=== PATIENT | female | born 1990 | race Hispanic/Latino ===

== ENCOUNTER 2019-09-03 05:13 | Emergency (ER) | payer OTHER ==
[~2019-09-03] VITALS: Ht 160 cm; Wt 86.2 kg
--- OUTSIDE RECORDS SUMMARY | 2019-09-03 05:16 | XMS REPORT | Summary of Care ---
Author Author 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 [place], [place] [address] [phone] Attending Physician: Milly Luna RNC,MSN,,WHNP-BC Vital Signs No data available for this section Problem List No data available for this section Allergies, Adverse Reactions, Alerts Substance Reaction Severity Status NKDA Active Medications No data available for this section Results No data available for this section Immunizations No data available for this section Procedures No data available for this section Social History Social History Type Response Smoking Status Never smoker; Exposure to T obacco Smoke None; Cigarette Smoking Last 365 Days No; Reg Smoking Cessation Counseli ng No entered on: 09/14/17 Assessment and Plan No data available for this section
--- OUTSIDE RECORDS SUMMARY | 2019-09-03 05:16 | XMS REPORT ---
Author Author Liliya Roblero Organization [employer] Address Unknown Phone Unavailable Care Team Providers Care Engineering Executive Name Role Phone Osbaldo, Dinora Unavailable Allergies, Adverse Reactions, Alerts Substance Reaction Event Type N.K.D.A. 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 Problem Other insomnia G47.09 Active Problem Hypertriglyceridemia E78.1 Active Problem Low vitamin D level R79.89 Active Problem Non-compliant patient Z91.19 Active Problem Pelvic pain in female R10.2 Active Problem Menorrhagia with regular cycle N92.0 Active Problem Positive RPR test A53.0 Active Problem Endometriosis N80.9 Active Assessment Obesity (BMI 30-39.9) E66.9 Active Assessment BMI 30.0-30.9,adult Z68.30 Active Assessment Non-compliant patient Z91.19 Active Assessment Positive RPR test A53.0 Active Problem Dysmenorrhea N94.6 Active Assessment Low vitamin D level R79.89 Active Problem Obesity (BMI 30-39.9) E66.9 Active Assessment Hypertriglyceridemia E78.1 Active Problem Anxiety F41.9 Active Medications Medication Code System Code Instructions Start Date End Date Status Dosage Diazepam [facility] 91419333811 10 mg Orally Once a day as needed Active 1 tablet as needed Ortho Tri-Cyclen (28) [facility] 48514225718 0.18/0.215 /0.25 MG-35 MCG Orally Once a day July 30, 2017 Active 1 tablet Vital Signs Date/Time: October 20, 2017 BMI 32.84 Index Weight 185.4 lbs Height 63 in Temperature 98.5 F Cardiac Monitoring Heart Rate 74 /min Blood Pressure Diastolic 80 mm Hg Blood Pressure Systolic 123 mm Hg Results No Known Results Summary Purpose [employer] Submission
--- OUTSIDE RECORDS SUMMARY | 2019-09-03 05:16 | XMS REPORT | Summary of Care ---
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 Organization [facility] logging specialist Summer 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 [address] [place] [address]- Attending Physician: Milly Luna RNC,MSN,,WHNP-BC Vital Signs No data available for this section Problem List No data available for this section Allergies, Adverse Reactions, Alerts No Known Medication Allergies Medications No data available for this section [...]
--- OUTSIDE RECORDS SUMMARY | 2019-09-03 05:16 | XMS REPORT | Summary of Care ---
Author Author [facility] Organization [facility] Address Unknown Phone Unavailable Encounter HQ Encntr_alias(FIN) [id number] Date(s): 06/23/17 - 06/23/17 [facility] [address], [address] [place] [address]- [phone] Attending Physician: Jose Manuel Nugent MD Vital Signs No data available for this [...]
--- OUTSIDE RECORDS SUMMARY | 2019-09-03 05:16 | XMS REPORT ---
Author Author Liliya Roblero Organization [employer] Address Unknown Phone Unavailable Care Team Providers Care Coil Winding Supervisor Name Role Phone Osbaldo, Dinora CP Unavailable Allergies, Adverse Reactions, Alerts Substance Reaction Event Type N.K.D.A. 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 Problem Other insomnia G47.09 Active Problem Anxiety F41.9 Active Problem Obesity (BMI 30-39.9) E66.9 Active Problem BMI 30.0-30.9,adult Z68.30 Active Problem Pelvic pain in female R10.2 Active Problem Menorrhagia with regular cycle N92.0 Active Problem Dysmenorrhea N94.6 Active Problem Endometriosis N80.9 Active Assessment Obesity (BMI 30-39.9) E66.9 Active Assessment BMI 30.0-30.9,adult Z68.30 Active Assessment Anxiety F41.9 Active Assessment Endometriosis N80.9 Active Assessment 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 Assessment Pelvic pain in female R10.2 Active Assessment Other insomnia G47.09 Active Assessment Menorrhagia with regular cycle N92.0 Active Medications Medication Code System Code Instructions Start Date End Date Status Dosage Naproxen NDC [address]-19 500 mg Orally Twice a day as need ed July 24, 2017 August 23, 2017 Active 1 tablet tramadol NDC 0 50mg 4-6 times a day-PRN Inact yobani 1po Diazepam NDC 56034305679 10 mg Orally Once a day as needed Active 1 tablet as needed Vital Signs Date/Time: July 24, 2017 BMI 32.29 Index Weight 182.3 lbs Height 63 in Temperature 97.0 F Cardiac Monitoring Heart Rate 73 /min Blood Pressure Diastolic 77 mm Hg Blood Pressure Systolic 114 mm Hg Results No Known Results Immunizations Vaccine Administration Date FLU SHOT 3 & UP July 24, 2017 Summary Purpose [employer] Submission
--- OUTSIDE RECORDS SUMMARY | 2019-09-03 05:16 | XMS REPORT ---
Author Author Liliya Roblero Organization [employer] Address Unknown Phone Unavailable Care Team Providers Care Back Seam Stitcher Name Role Phone Osbaldo Dinora Unavailable Allergies, Adverse Reactions, Alerts Substance Reaction Event Type N.K.D.A. 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 Problem Other insomnia G47.09 Active Assessment Encounter for initial prescription of contraceptive pi lls Z30.011 Active Assessment Concern about STD in female without diagnosis Z71.1 Active Problem Anxiety F41.9 Active Problem Obesity (BMI 30-39.9) E66.9 Active Problem BMI 30.0-30.9,adult Z68.30 Active Problem Pelvic pain in female R10.2 Active Problem Menorrhagia with regular cycle N92.0 Active Problem Dysmenorrhea N94.6 Active Problem Endometriosis N80.9 Active Medications Medication Code System Code Instructions Start Date End Date Status Dosage Diazepam [facility] 42570663191 10 mg Orally Once a day as needed Active 1 tablet as needed Naproxen [facility] [address]-71 500 mg Orally Twice a day as need ed July 24, 2017 August 23, 2017 Active 1 tablet Ortho Tri-Cyclen (28) [facility] 89533351026 0.18/0.215 /0.25 MG-35 MCG Orally Once a day July 30, 2017 Active 1 tablet Vital Signs Date/Time: July 30, 2017 BMI 32.02 Index Weight 180.8 lbs Height 63 in Temperature 97.2 F Cardiac Monitoring Heart Rate 86 /min Blood Pressure Diastolic 75 mm Hg Blood Pressure Systolic 116 mm Hg Results No Known Results Summary Purpose [employer] Submission
--- OUTSIDE RECORDS SUMMARY | 2019-09-03 05:16 | XMS REPORT | Summary of Care ---
Author Author [facility] Organization [facility] Address Unknown Phone Unavailable Encounter HQ Deirdre(LIAT) [id number] Date(s): 09/14/17 - 09/14/17 [facility] [address] [place] [address]- Encounter Diagnosis Pelvic pain in female (Discharge Diagnosis) - 09/14/17 Dysuria (Discharge Diagnosis) - 09/14/17 Discharge Disposition: Home or Self Care Attending Physician: Bhanu Cantu DO Vital Signs Most recent to 1 2 oldest [Reference Range]: Temperature Oral 98.2 DegF 98 DegF [96.4-99.1 DegF] (09/14/17 5:15 AM) (09/14/17 1:41 AM) Blood Pressure 118/79 mmHg 128/84 mmHg [90-140/60-90 mmHg] (09/14/17 5:15 AM) (09/14/17 1:41 AM) Respiratory Rate 16 BRMIN 20 BRMIN [14-20 BRMIN] (09/14/17 5:15 AM) (09/14/17 1:41 AM) Peripheral Pulse 84 bpm 104 bpm Rate [60-100 bpm] (09/14/17 5:15 AM) *HI* (09/14/17 1:41 AM) Problem List No data available for this section Allergies, Adverse Reactions, Alerts Substance Reaction Severity Status NKDA Active Medications cephalexin 500 mg oral tablet 500 mg = 1 tab, PO, Q8H, X 7 day, # 21 tab, 0 Refill(s) Start Date: 09/14/17 Stop Date: 09/21/17 Status: Ordered ketOROLAC 60 mg, Route: IM, Drug form: INJ, ONCE, kg, Priority: STAT, Start date: 09/14/17 2:05:00 CDT, Stop date: 09/14/17 2:05:00 CDT Start Date: 09/14/17 Stop Date: 09/14/17 Status: Completed Pyridium 200 mg, 2 tab, Route: PO, Drug form: TAB, ONCE, kg, Priority: STAT, Start date: 09/14/17 2:05:00 CDT, Stop date: 09/14/17 2:05:00 CDT Notes: Give with meals.(Same as: Pyridium) Start Date: 09/14/17 Stop Date: 09/14/17 Status: Completed Pyridium 200 mg oral tablet 200 mg = 1 tab, PO, TID, PRN Dysuria, X 2 day, # 6 tab, 0 Refill(s) Start Date: 09/14/17 Stop Date: 09/16/17 Status: Completed tramadol 50 mg oral tablet 50 mg = 1 tab, PO, Q6H, PRN PAIN, not to exceed 400 mg/day, X 5 day, # 20 tab, 0 Refill(s) Start Date: 09/14/17 Stop Date: 09/19/17 Status: Ordered Zofran ODT 4 mg, Route: PO, Drug form: TABDIS, ONCE, kg, Priority: STAT, Start date: 3:13:00 CDT, Stop date: 09/14/17 3:13:00 CDT Start Date: 09/14/17 Stop Date: 09/14/17 Status: Completed Zofran ODT 4 mg oral tablet, disintegrating 4 mg = 1 tab, PO, Q8H, PRN Nausea and Vomiting, Dissolve tab under tongue, # 15 tab, 0 Refill(s) Start Date: 09/14/17 Stop Date: 09/19/17 Status: Ordered Results ELECTROLYTES Most recent to 1 oldest [Reference Range]: Sodium Lvl [135-145 135 mEq/L mEq/L] (09/14/17 3:35 AM) Potassium Lvl 3.8 mEq/L [3.5-5.1 mEq/L] (09/14/17 3:35 AM) Chloride Lvl [95-109 105 mEq/L mEq/L] (09/14/17 3:35 AM) CO2 [24-32 mEq/L] 23 mEq/L *LOW* (09/14/17 3:35 AM) AGAP [10.0-20.0 10.8 mEq/L mEq/L] (09/14/17 3:35 AM) CHEM PANEL Most recent to 1 oldest [Reference Range]: Creatinine Lvl 0.71 mg/dL [0.50-1.40 mg/dL] (09/14/17 3:35 AM) eGFR 115 mL/min/1.73m2 1 *NA* (09/14/17 3:35 AM) BUN [7-22 mg/dL] 12 mg/dL (09/14/17 3:35 AM) B/C Ratio [6-25] 17 (09/14/17 3:35 AM) Glucose Lvl [70-99 95 mg/dL mg/dL] (09/14/17 3:35 AM) Total Protein 7.9 g/dL [6.4-8.4 g/dL] (09/14/17 3:35 AM) Albumin Lvl [3.5-5.0 3.9 g/dL g/dL] (09/14/17 3:35 AM) Globulin [2.7-4.2 4.0 g/dL g/dL] (09/14/17 3:35 AM) A/G Ratio [0.7-1.6] 1.0 (09/14/17 3:35 AM) Calcium Lvl 8.5 mg/dL [8.5-10.5 mg/dL] (09/14/17 3:35 AM) ALT [0-65 unit/L] 17 unit/L (09/14/17 3:35 AM) AST [0-37 unit/L] 14 unit/L (09/14/17 3:35 AM) Alk Phos [39-136 63 unit/L unit/L] (09/14/17 3:35 AM) Bili Total [0.2-1.3 0.5 mg/dL mg/dL] (09/14/17 3:35 AM) Lipase Lvl [73-393 130 unit/L unit/L] (09/14/17 3:35 AM) 1Result Comment: The eGFR is calculated using the CKD-EPI formula. In most young, healthy individuals the eGFR will be >90 mL/min/1.73m2. The eGFR declines with age. An eGFR of 60-89 may be normal in some populations, particularly the elderly, for whom the CKD-EPI formula has not been extensively validated. Use of the eGFR is not recommended in the following populations: Individuals with unstable creatinine concentrations, including patients and those with serious co-morbid conditions. Patients with extremes in muscle mass or diet. The data above are obtained from the National Kidney Disease Education Program ( NKDEP) which additionally recommends that when the eGFR is used in patients with extremes of body mass index for purposes of drug dosing, the eGFR should be mul tiplied by the estimated BMI. URINE CHEM Most recent to 1 oldest [Reference Range]: U Preg [Negative] Negative (09/14/17 2:23 AM) URINE AND STOOL Most recent to 1 oldest [Reference Range]: UA Turbidity [Clear] Clear (09/14/17 2:23 AM) UA Color Ltyellow *NA* (09/14/17 2:23 AM) UA pH [5.0-8.0] 7.0 (09/14/17 2:23 AM) UA Spec Grav 1.018 [<=1.030] (09/14/17 2:23 AM) UA Glucose [Negative Negative mg/dL mg/dL] *NA* (09/14/17 2:23 AM) UA Blood [Negative] Negative (09/14/17 2:23 AM) UA Ketones [Negative Negative mg/dL mg/dL] *NA* (09/14/17 2:23 AM) UA Protein [Negative Negative mg/dL mg/dL] (09/14/17 2:23 AM) UA Urobilinogen <=1.0 mg/dL [0.1-1.0 mg/dL] *NA* (09/14/17 2:23 AM) UA Bili [Negative] Negative *NA* (09/14/17 2:23 AM) UA Leuk Est Small [Negative] *ABN* (09/14/17 2:23 AM) UA Nitrite Negative [Negative] (09/14/17 2:23 AM) UA WBC [0-5 /HPF] 3 /HPF (09/14/17 2:23 AM) UA RBC [0-2 /HPF] 1 /HPF (09/14/17 2:23 AM) UA Bacteria [None Many /HPF Seen /HPF] *ABN* (09/14/17 2:23 AM) UA Sq Epi [Few /LPF] Moderate /LPF *ABN* (09/14/17 2:23 AM) HEMATOLOGY Most recent to 1 oldest [Reference Range]: WBC [3.7-10.4 K/CMM] 9.9 K/CMM (09/14/17 3:35 AM) RBC [4.20-5.40 4.39 M/CMM M/CMM] (09/14/17 3:35 AM) Hgb [12.0-16.0 g/dL] 13.5 g/dL (09/14/17 3:35 AM) Hct [36.0-48.0 %] 38.7 % (09/14/17 3:35 AM) MCV [80.0-98.0 fL] 88.2 fL (09/14/17 3:35 AM) MCH [27.0-31.0 pg] 30.9 pg (09/14/17 3:35 AM) MCHC [32.0-36.0 35.0 g/dL g/dL] (09/14/17 3:35 AM) RDW [11.5-14.5 %] 13.5 % (09/14/17 3:35 AM) MPV [7.4-10.4 fL] 9.1 fL (09/14/17 3:35 AM) Platelet [133-450 224 K/CMM K/CMM] (09/14/17 3:35 AM) Segs [45.0-75.0 %] 79.8 % *HI* (09/14/17 3:35 AM) Lymphocytes 11.2 % [20.0-40.0 %] *LOW* (09/14/17 3:35 AM) Monocytes [2.0-12.0 8.0 % %] (09/14/17 3:35 AM) Eosinophils [0.0-4.0 0.5 % %] (09/14/17 3:35 AM) Basophils [0.0-1.0 0.5 % %] (09/14/17 3:35 AM) Segs-Bands # 7.9 K/CMM [1.5-8.1 K/CMM] (09/14/17 3:35 AM) Lymphocytes # 1.1 K/CMM [1.0-5.5 K/CMM] (09/14/17 3:35 AM) Monocytes # [0.0-0.8 0.8 K/CMM K/CMM] (09/14/17 3:35 AM) Eosinophils # 0.1 K/CMM [0.0-0.5 K/CMM] (09/14/17 3:35 AM) Basophils # [0.0-0.2 0.1 K/CMM K/CMM] (09/14/17 3:35 AM) Immunizations No data available for this section Procedures No data available for this section Social History Social History Type Response Smoking Status Never smoker; Exposure to T obacco Smoke None; Cigarette Smoking Last 365 Days No; Reg Smoking Cessation Counseli ng No entered on: 09/14/17 Assessment and Plan No data available for this section
--- OUTSIDE RECORDS SUMMARY | 2019-09-03 05:16 | XMS REPORT | Continuity of Care Document ---
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 Phone [employer] Unavailable Un available Problems Problem Status Onset Date Classification Date Reported Comments Source Pelvic and perineal pain 09/14/2017 09/17/2017 [facility] Dysuria 01/201809/17/2017 [facility] FLANK PAIN Active 09/13/2017 [facility] Fear of flying Active Problem 10/21/2017 [facility] Other insomnia Active Problem 10/21/2017 [facility] Encounter for initial prescription of co ntraceptive pills Active Diag nosis 07/31/2017 [facility] Concern about STD in female without diagnosis Active Diagnosis 07/31/2017 [facility] Anxiety Active Problem 10/21/2017 [facility] Obesity (BMI 30-39.9) Active Diagnosis 10/21/2017 [facility] BMI 30.0-30.9,adult Active Problem 10/21/2017 [facility] Pelvic pain in female Active Problem 10/21/2017 [facility] Menorrhagia with regular cycle Active Problem [facility] Dysmenorrhea Active Problem 10/21/2017 [facility] Endometriosis Active Problem 10/21/2017 [facility] Hypertriglyceridemia Active Problem 10/21/2017 [facility] Low vitamin D level Active Problem 10/21/2017 [facility] Non-compliant patient Active Problem 10/21/2017 [facility] Positive RPR test Active Problem 10/21/2017 [facility] Medications Medication Details Route Status Patient Instructions Ordering Provider Order Date Source Ondansetron 4 MG Disintegrating Tablet [Zofran] 4 mg = 1 tab, PO, Q8H, PRN Nausea and Vomiting, Dissolve tab under tongue, # 15 tab, 0 Refill(s) Active 09/14/2017 [facility] Phenazopyridine hydrochloride 200 MG Ora l Tablet [Pyridium] 200 mg = 1 tab, PO, TID, PRN Dysuria, X 2 day, # 6 tab, 0 Refill(s) No Longer Active 09/14/2017 [facility] tramadol hydrochloride 50 MG Oral Tablet 50 mg = 1 tab, PO, Q6H, PRN PAIN, not to exceed 400 mg/day, X 5 day, # 20 tab, 0 Refill(s) Active 09/14/2017 [facility] cephalexin 500 mg oral tablet 500 mg = 1 tab, PO, Q8H, X 7 day, # 21 tab, 0 Refill(s) Active 09/14/2017 [facility] Zofran ODT 4 mg, Route: PO, Dr ug form: TABDIS, ONCE, kg, Priority: STAT, Start date: 09/14/17 3:13:00 CDT, Stop date: 09/14/17 3:13:00 CDT Inactive 09/14/2017 [facility] Pyridium Notes: Give with meal s. (Same as: Pyridium) Inactive 09/14/2017 [facility] Ketorolac 60 mg, Route: IM, Dr slade form: INJ, ONCE, kg, Priority: STAT, Start date: 09/14/17 2:05:00 CDT, Stop date: 09/14/17 2:05:00 CDT Inactive 09/14/2017 [facility] Ortho Tri-Cyclen (28) 1 tablet Orally Active 0.18/0.215/0.25 MG-35 MCG Orally Once a day [facility] 07/30/2017 [facility] Naproxen 1 tablet Orally Active 500 mg Orally Twice a d ay as needed [facility] 07/24/2017 [facility] Diazepam 1 tablet as needed Orally Active 10 mg Orally Once a day as needed [facility] tramadol 1po NA Active 50mg 4-6 times a day[facility] Allergies, Adverse Reactions, Alerts Substance Category Reaction Severity Reaction type Status Date Reported Comments Source N.K.D.A. Adverse Reaction Info Not Available Adverse Reaction Active 10/20/2017 [facility] No Known Medication Allergies Assertion [facility] Immunizations Immunization Date Given Site Status Last Updated Comments Source FLU SHOT 3 & UP 07/24/2017 completed [facility] Results Order Name Results Value Reference Range Date Interpretation Comments Source CHEM PANEL Lipase Lvl 130 73 - 393 09/14/2017 [facility] CHEM PANEL eGFR 115 09/14/2017 Result Comment: The eGFR is calculated using the [...] from the National Kidney Disease Education Program (NKDEP) which additionally recommends that when the eGFR is used in patients with extremes of body mass index for purposes of drug dosing, the eGFR should be multiplied by the estimated BMI. [facility] CHEM PANEL Sodium Lvl 135 135 - 145 09/14/2017 [facility] CHEM PANEL Chloride Lvl 105 95 - 109 09/14/2017 [facility] CHEM PANEL Potassium Lvl 3.8 3.5 - 5.1 09/14/2017 [facility] CHEM PANEL CO2 23 24 - 32 09/14/2017 [facility] CHEM PANEL Total Protein 7.9 6.4 - 8.4 09/14/2017 [facility] CHEM PANEL Calcium Lvl 8.5 8.5 - 10.5 09/14/2017 [facility] CHEM PANEL ALT 17 0 - 65 09/14/2017 [facility] CHEM PANEL Albumin Lvl 3.9 3.5 - 5.0 09/14/2017 [facility] CHEM PANEL AST 14 0 - 37 09/14/2017 [facility] CHEM PANEL Alk Phos 63 39 - 136 09/14/2017 [facility] CHEM PANEL Bili Total 0.5 0.2 - 1.3 09/14/2017 [facility] CHEM PANEL Glucose Lvl 95 70 - 99 09/14/2017 [facility] CHEM PANEL Creatinine Lvl 0.71 0.50 - 1.40 09/14/2017 [facility] CHEM PANEL BUN 12 7 - 22 09/14/2017 [facility] CHEM PANEL B/C Ratio 17 6 - 25 09/14/2017 [facility] CHEM PANEL AGAP 10.8 10.0 - 20.0 09/14/2017 [facility] CHEM PANEL Globulin 4.0 2.7 - 4.2 09/14/2017 [facility] CHEM PANEL A/G Ratio 1.0 0.7 - 1.6 09/14/2017 [facility] HEMATOLOGY MCH 30.9 27.0 - 31.0 09/14/2017 [facility] MCHC 35.0 32.0 - 36.0 09/14/2017 [facility] HEMATOLOGY WBC 9.9 3.7 - 10.4 09/14/2017 [facility] Platelet 224 133 - 450 09/14/2017 [facility] RDW 13.5 11.5 - 14.5 09/14/2017 [facility] MPV 9.1 7.4 - 10.4 09/14/2017 [facility] MCV 88.2 80.0 - 98.0 09/14/2017 [facility] Hct 38.7 36.0 - 48.0 09/14/2017 [facility] Hgb 13.5 12.0 - 16.0 09/14/2017 [facility] RBC 4.39 4.20 - 5.40 09/14/2017 [facility] Basophils 0.5 0.0 - 1.0 09/14/2017 [facility] Lymphocytes 11.2 20.0 - 40.0 09/14/2017 [facility] Segs-Bands # 7.9 1.5 - 8.1 09/14/2017 [facility] Basophils # 0.1 0.0 - 0.2 09/14/2017 [facility] Lymphocytes # 1.1 1.0 - 5.5 09/14/2017 [facility] HEMATOLOGY Eosinophils # 0.1 0.0 - 0.5 09/14/2017 [facility] Monocytes # 0.8 0.0 - 0.8 09/14/2017 [facility] Eosinophils 0.5 0.0 - 4.0 09/14/2017 [facility] Segs 79.8 45.0 - 75.0 09/14/2017 [facility] Monocytes 8.0 2.0 - 12.0 09/14/2017 [facility] URINE AND STOOL UA RBC 1 0 - 2 09/14/2017 [facility] URINE AND STOOL UA Bacteria Many /HPF None Seen /HPF 09/14/2017 [facility] URINE AND STOOL UA WBC 3 0 - 5 09/14/2017 [facility] URINE AND STOOL UA Color Ltyellow 09/14/2017 [facility] URINE AND STOOL UA Urobilinogen <=1.0 mg/dL 0.1 - 1.0 09/14/2017 [facility] URINE AND STOOL UA Blood Negative (09/14/17 2:23 AM) Negative 09/14/2017 [facility] URINE AND STOOL UA Nitrite Negative (09/14/17 2:23 AM) Negative 09/14/2017 [facility] URINE AND STOOL UA Bili Negative *NA* (09/14/17 2:23 AM) Negative 09/14/2017 [facility] URINE AND STOOL UA Leuk Est Small *ABN* (09/14/17 2:23 AM) Negative 09/14/2017 [facility] URINE AND STOOL UA Sq Epi Moderate /LPF Few /LPF 09/14/2017 [facility] URINE AND STOOL UA Turbidity Clear (09/14/17 2:23 AM) Clear 09/14/2017 [facility] URINE AND STOOL UA Ketones Negative mg/dL Negative mg/dL 09/14/2017 [facility] URINE AND STOOL UA Glucose Negative mg/dL Negative mg/dL 09/14/2017 [facility] URINE AND STOOL UA Protein Negative mg/dL Negative mg/dL 09/14/2017 [facility] URINE AND STOOL UA pH 7.0 5.0 - 8.0 09/14/2017 [facility] URINE AND STOOL UA Spec Grav 1.018 <=1.030 09/14/2017 [facility] URINE CHEM U Preg Negat yobani (09/14/17 2:23 AM) Negative 09/14/2017 [facility] Pathology Reports No Data Provided for This Section Diagnostic Reports Report Value Date Source Pelvis Transvag w Pelvis Doppler US Exam: Pelvic Ultrasound Clinical Indication: Pelvic pain Technique: Transabdominal pelvic ultrasound is performed. Transvaginal pelvic ultrasound is performed for better endometrial evaluation. Findings: Uterus is normal and measures 6.5 x 5.2 x 4.3 cm. Endometrial echocomplex is normal and measures up to 1 cm. The bilateral ovaries are normal. Flow is seen to both ovaries on Doppler study. There is mild pelvic free fluid. Right ovary measures: 3 x 2.7 x 2.1 cm. Left ovary measures: 3.5 x 3.3 x 2.3 cm. Impression: Mild pelvic free fluid. 09/14/2017 [facility] Consultation Notes No Data Provided for This Section Discharge Summaries No Data Provided for This Section History and Physicals No Data Provided for This Section Vital Signs Vital Sign Value Date Comments Source Weight 185.4 10/20/2017 [facility] Height 63 0 10/20/2017 [facility] Temperature Oral (F) 98.5 F 10/20/2017 [facility] Heart Rate 74 10/20/2017 [facility] Diastolic (mm Hg) 80 10/20/2017 [facility] Systolic (mm Hg) 123 10/20/2017 [facility] Systolic (mm Hg) 118 09/14/2017 [facility] Diastolic (mm Hg) 79 09/14/2017 [facility] Respitory Rate 16 09/14/2017 [facility] Heart Rate 84 09/14/2017 [facility] Temperature Oral (F) 98.2 F 09/14/2017 [facility] Temperature Oral (F) 98 F 09/14/2017 [facility] Respitory Rate 20 09/14/2017 [facility] Systolic (mm Hg) 128 09/14/2017 [facility] Diastolic (mm Hg) 84 09/14/2017 [facility] Heart Rate 104 09/14/2017 [facility] Weight 180.8 07/30/2017 [facility] Height 63 0 07/30/2017 [facility] Temperature Oral (F) 97.2 F 07/30/2017 [facility] Heart Rate 86 07/30/2017 [facility] Diastolic (mm Hg) 75 07/30/2017 [facility] Systolic (mm Hg) 116 07/30/2017 [facility] Weight 182.3 07/24/2017 [facility] Height 63 0 07/24/2017 [facility] Temperature Oral (F) 97.0 F 07/24/2017 [facility] Heart Rate 73 07/24/2017 [facility] Diastolic (mm Hg) 77 07/24/2017 [facility] Systolic (mm Hg) 114 07/24/2017 [facility] Encounters Location Location Details Encounter Type Encounter Number Reason For Visit Attending Provider ADM Date DC Date Status Source [facility] Primary Care [facility] Ambulatory Pre-Reg [id number] Jose Manuel Nugent 06/23/2017 06/23/2017 [facility] [id number] Bhanu Cantu 09/14/2017 09/14/2017 [facility] 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[place] Ambulatory Pre-Reg [id number] Milly Luna 05/06/2018 05/06/2018 Medical formerly [facility] Primary Care [place] [facility] Ambulatory Pre-Reg [id number] Yovana Simmons Erica 05/06/2018 05/06/2018 Medical [facility] Procedures No Data Provided for This Section Assessment and Plan No Data Provided for This Section Plan of Care No Data Provided for This Section Social History Social History Date Source Social History TypeResponse Smoking Status Never smoker; Exposure to Tobacco Smoke None; Cigarette Smoking Last 365 Days No; Reg Smoking Cessation Counseling No entered on: 09/14/17 09/14/2017 [facility] Social History TypeResponse Smoking Status Never smoker; Exposure to Tobacco Smoke None; Cigarette Smoking Last 365 Days No; Reg Smoking Cessation Counseling No entered on: 09/14/17 09/14/2017 [facility] Family History No Data Provided for This Section Advance Directives No Data Provided for This Section Functional Status No Data Provided for This Section
--- OUTSIDE RECORDS SUMMARY | 2019-09-03 05:16 | XMS REPORT | Summary of Care ---
Author Author [facility] Primary Care [facility] Organization [facility] Primary Care formerly [facility] Address Unknown Phone Unavailable Encounter HQ Encntr_alias(FIN) [id number] Date(s): 05/06/18 - 05/06/18 [facility] Primary Care [facility] [address] [place], [place] [address]- [phone] Attending Physician: Iris Maldonado DO Vital Signs No data available for this [...]
[2019-09-03 06:03] LABS: BASOPHILS % 0.3 % (0.0-1.0); EOSINOPHILS # (AUTO) 0.2 (0.0-0.4); EOSINOPHILS % 2.3 % (0.0-6.0); HEMATOCRIT 38.5 % (34.2-44.1); HEMOGLOBIN 13.3 g/dL (12.0-16.0); LYMPHOCYTES # (AUTO) 2.7 (1.0-3.2); LYMPHOCYTES % 34.3 % (18.0-39.1); MEAN CORPUSCULAR HEMOGLOBIN 30.5 pg (28-32); MEAN CORPUSCULAR HGB CONC 34.5 g/dL (31-35); MEAN CORPUSCULAR VOLUME 88.3 fL (81-99); MONOCYTES # (AUTO) 0.6 (0.2-0.8); MONOCYTES % 7.4 % (4.4-11.3); NEUTROPHILS # (AUTO) 4.4 (2.1-6.9); NEUTROPHILS % 55.4 % (38.7-80.0); PLATELET COUNT 334 x10e3/uL (140-360); RED BLOOD COUNT 4.36 x10e6/uL (3.6-5.1); RED CELL DISTRIBUTION WIDTH 13.1 % (11.7-14.4)
[2019-09-03 06:18] LABS: AMPHETAMINES SCREEN,URINE NEGATIVE (NEGATIVE); CLARITY,URINE SL CLOUDY (CLEAR); COLOR,URINE YELLOW (YELLOW); KETONES,URINE NEGATIVE (NEGATIVE); LEUKOCYTE ESTERASE ,URINE NEGATIVE (NEGATIVE); NITRITE,URINE POSITIVE (NEGATIVE); PHENCYCLIDINE SCREEN,URINE NEGATIVE (NEGATIVE); PROTEIN,URINE DIPSTICK NEGATIVE (NEGATIVE)
[2019-09-03 06:19] LABS: BENZODIAZEPINES SCREEN,URINE POSITIVE (NEGATIVE); BILIRUBIN,URINE NEGATIVE (NEGATIVE); URINE UROBILINOGEN 0.2 mg/dL (0.2 - 1)
[2019-09-03 06:23] LABS: ALANINE AMINOTRANSFERASE 17 IU/L (0-55); ALBUMIN 4.2 g/dL (3.5-5.0); ALBUMIN/GLOBULIN RATIO 1.1 (0.8-2.0); ALKALINE PHOSPHATASE 49 IU/L (40-150); ANION GAP 12.8 mmol/L (8-16); BLOOD UREA NITROGEN 10 mg/dL (7-26); BUN/CREATININE RATIO 12 (6-25); CALCIUM 9.6 mg/dL (8.4-10.2); CARBON DIOXIDE 24 mmol/L (22-29); CHLORIDE 106 mmol/L (98-107); CREATINE KINASE 63 IU/L (29-168); CREATININE, SERUM 0.86 mg/dL (0.57-1.11); EST GLOMERULAR FILTRATION RATE > 60 ML/MIN (60-); GLUCOSE 100 mg/dL (74-118); POTASSIUM 3.8 mmol/L (3.5-5.1); SODIUM 139 mmol/L (136-145)
[2019-09-03 06:28] LABS: BACTERIA,URINE MANY /HPF; EPITHELIAL CELLS,URINE FEW /LPF; RBC,URINE 0-5 /HPF (0-5)
--- NOTE | 2019-09-03 07:02 | Emergency Department Note ---
History of Present Illnes History of Present Illness Chief Complaint: Chest Pain History of Present Illness This is a 29 year old female arrived to the ED for left sided chest pain radiating left arm pain- pt states symptoms began suddenly while at work yesterday evening and she wanted to make sure she's not having a heart attack. Pt describes the symptoms as pins and needles. Chief Complaint Comment 29 Y/O FEMALE PT A&OX3 PRESENTS TO THE ER C/O LT SIDED CP RADIATING TO HER LT ARM AND JAW ONSET LAST NIGHT AROUND 1900 WHILE AT WORK;PARAMEDICS ARRIVED TO SCENE, PERFORMED EKG AND STATED PT WAS STABLE; PT STATES CP RESOLVED AND ONLY CURRENTLY REPORTING LT ARM PAIN;PT DENIES ANY RECENT STRENUOUS ACTIVITY OR HEAVY LIFTING; PT DENIES CP OR SOB AT THIS TIME; SKIN WARM, DRY AND WNL FOR PT; RESP EVEN/UNLABORED; SPO2 100% RA; V/S/S; 20G IV CATH PLACED IN RT AC; BLOOD AND UA OBTAINED FOR ANALYSIS; EKG PERFORMED AND GIVEN TO ER MD FOR INTERPRETATION; DR. AGUSTIN AT BEDSIDE FOR INIITIAL EVAL. Historian: Patient Arrival Mode: Car Onset (how long ago): hour(s) Radiation: non-radiation Severity: mild Onset quality: gradual Timing of current episode: constant Progression: unchanged Past Medical/Family History Physician Review I have reviewed the patient's past medical and family history. Any updates have been documented here. Past Medical History Recent Fever: No Clinical Suspicion of Infectio: No New/Unexplained Change in Ment: No Past Medical History: Anxiety Other Medical History: ENDOMETRIOSIS Other Surgery: EGD X2 Social History Smoking Cessation: Never Smoker Alcohol Use: Occasional Any Illegal Drug Use: No TB Exposure/Symptoms: No Physically hurt or threatened: No Other Last Tetanus: UTD Any Pre-Existing Lines (PICC,: No Is patient up to date on immun: Yes Last Flu: UTD Last Pneumovax: DENIES Review of Systems Review of Systems Constitutional: no symptoms EENTM: no symptoms Cardiovascular: chest pain Respiratory: no symptoms Gastrointestinal: no symptoms Genitourinary: no symptoms Musculoskeletal: no symptoms Neurological: no symptoms Psychological: no symptoms Endocrine: no symptoms Hematological/Lymphatic: no symptoms Review of other systems All other systems reviewed and negative. Physical Exam Related Data Allergies: Coded Allergies: No Known Allergies (Unverified , 5/29/20) Triage Vital Signs Vital Signs Date Time Temp Pulse Resp B/P (MAP) Pulse Ox O2 Delivery O2 Flow Rate FiO2 09/03/19 05:18 98.4 85 16 133/96 100 Vital signs reviewed: Yes Physical Exam CONSTITUTIONAL Constitutional: well-developed, well-nourished HENT HENT: normocephalic, atraumatic, oropharynx clear/moist, nose normal HENT L/R: left ext ear normal, right ext ear normal EYES Eyes: PERRL, conjunctivae normal NECK Neck: ROM normal PULMONARY Pulmonary: effort normal, breath sounds normal CARDIOVASCULAR Cardiovascular: regular rhythm, heart sounds normal, capillary refill normal, normal rate GASTROINTESTINAL Abdominal: soft, nontender, bowel sounds normal GENITOURINARY Genitourinary: exam deferred SKIN Skin: warm, dry MUSCULOSKELETAL Musculoskeletal: ROM normal NEUROLOGICAL Neurological: alert, oriented x 3, no gross motor or sensory deficits PSYCHOLOGICAL Psychological: mood/affect normal, judgement normal Results Laboratory Result Diagram: 09/03/19 0517 09/03/19 0517 Laboratory Laboratory Tests Test 09/03/19 05:35 09/03/19 05:17 Urine Color Yellow (YELLOW) Urine Clarity Sl cloudy (CLEAR) Urine pH 7 (5 - 7) Urine Specific [place] >=1.030 (1.010-1.025) Urine Protein Negative (NEGATIVE) Urine Glucose (UA) Negative (NEGATIVE) Urine Ketones Negative (NEGATIVE) Urine Blood Negative (NEGATIVE) Urine Nitrite Positive (NEGATIVE) Urine Bilirubin Negative (NEGATIVE) Urine Urobilinogen 0.2 mg/dL (0.2 - 1) Urine Leukocyte Esterase Negative (NEGATIVE) Urine RBC 0-5 /HPF (0-5) Urine WBC 11-20 /HPF (0-5) Urine Epithelial Cells Few /LPF (NONE) Urine Bacteria Many /HPF (NONE) Urine Opiates Screen Negative (NEGATIVE) Urine Methadone Screen Negative (NEGATIVE) Urine Barbiturates Screen Negative (NEGATIVE) Urine Phencyclidine Screen Negative (NEGATIVE) Urine Amphetamines Screen Negative (NEGATIVE) Urine Methamphetamines Screen Negative (NEGATIVE) Urine Benzodiazepines Screen Positive (NEGATIVE) Urine Cocaine Screen Negative (NEGATIVE) Urine Cannabinoids Screen Negative (NEGATIVE) White Blood Count 7.95 x10e3/uL (4.8-10.8) Red Blood Count 4.36 x10e6/uL (3.6-5.1) Hemoglobin 13.3 g/dL (12.0-16.0) Hematocrit 38.5 % (34.2-44.1) Mean Corpuscular Volume 88.3 fL (81-99) Mean Corpuscular Hemoglobin 30.5 pg (28-32) Mean Corpuscular Hemoglobin Concent 34.5 g/dL (31-35) Red Cell Distribution Width 13.1 % (11.7-14.4) Platelet Count 334 x10e3/uL (140-360) Neutrophils (%) (Auto) 55.4 % (38.7-80.0) Lymphocytes (%) (Auto) 34.3 % (18.0-39.1) Monocytes (%) (Auto) 7.4 % (4.4-11.3) Eosinophils (%) (Auto) 2.3 % (0.0-6.0) Basophils (%) (Auto) 0.3 % (0.0-1.0) Neutrophils # (Auto) 4.4 (2.1-6.9) Lymphocytes # (Auto) 2.7 (1.0-3.2) Monocytes # (Auto) 0.6 (0.2-0.8) Eosinophils # (Auto) 0.2 (0.0-0.4) Basophils # (Auto) 0.0 (0.0-0.1) Absolute Immature Granulocyte (auto 0.02 x10e3/uL (0-0.1) Sodium Level 139 mmol/L (136-145) Potassium Level 3.8 mmol/L (3.5-5.1) Chloride Level 106 mmol/L (98-107) Carbon Dioxide Level 24 mmol/L (22-29) Anion Gap 12.8 mmol/L (8-16) Blood Urea Nitrogen 10 mg/dL (7-26) Creatinine 0.86 mg/dL (0.57-1.11) Estimat Glomerular Filtration Rate > 60 ML/MIN (60-) BUN/Creatinine Ratio 12 (6-25) Glucose Level 100 mg/dL (74-118) Calcium Level 9.6 mg/dL (8.4-10.2) Total Bilirubin 0.3 mg/dL (0.2-1.2) Aspartate Amino Transf (AST/SGOT) 17 IU/L (5-34) Alanine Aminotransferase (ALT/SGPT) 17 IU/L (0-55) Alkaline Phosphatase 49 IU/L (40-150) Creatine Kinase 63 IU/L (29-168) Creatine Kinase MB 0.40 ng/mL (0-5.0) Troponin I < 0.001 ng/mL (0-0.300) Total Protein 8.2 g/dL (6.5-8.1) Albumin 4.2 g/dL (3.5-5.0) Globulin 4.0 g/dL (2.3-3.5) Albumin/Globulin Ratio 1.1 (0.8-2.0) Lab results reviewed: Yes Imaging Imaging results reviewed: Yes Procedures 12 Lead ECG Interpretation 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 Assessment & Plan Assessment & Plan Final Impression: (1) CHEST PAIN, UNSPECIFIED Assessment & Plan cbc, cmp CXR EKG Depart Disposition: DIS TO SHELTER BED Last Vital Signs Date Time Temp Pulse Resp B/P (MAP) Pulse Ox O2 Delivery O2 Flow Rate FiO2 09/03/19 05:39 79 16 127/85 100 09/03/19 05:18 98.4 IRON AGUSTIN DO September 03, 2019 07:01
[2019-09-03] MEDS ORDERED: KETOROLAC TROMETHAMINE 30 MG/ML VIAL IV STA (07:12)
[2019-09-03 07:40] VITALS: BP 113/77
--- NOTE | 2019-09-03 08:15 | Diagnostic Imaging Report ---
EXAMINATION: CHEST SINGLE (PORTABLE) INDICATION: Chest pain COMPARISON: None FINDINGS: LINES/TUBES:EKG leads overlie the chest. LUNGS:The lungs are well-inflated. No focal consolidation or pulmonary edema. PLEURA:No pleural effusion or pneumothorax. MEDIASTINUM:The cardiomediastinal silhouette appears normal in size and shape. BONES/SOFT TISSUES:No acute osseous injury. ABDOMEN:No free air under the diaphragm. IMPRESSION: No focal pneumonia or pulmonary edema. Signed by: Ingrid Stone MD on 09/03/2019 8:12 AM
== END 2019-09-03 07:44 | disposition home or self-care (01) ==
LOC: ER 05:13
DX: R07.9 Chest pain, unspecified (principal); F41.9 Anxiety disorder, unspecified; N80.9 Endometriosis, unspecified
CPT/HCPCS: 36415; 71045; 80053; 80307; 81001; 82550; 82553; 84484; 85025; 93005; 99283; J1885